=== PATIENT | female | born 1980 | race Caucasian/White ===

== ENCOUNTER 2016-09-25 08:48 | Day surgery (SDC) | payer OTHER ==
[~2016-09-25] VITALS: Ht 163.8 cm; Wt 108.4 kg
[~2016-09-25 08:48] MED LIST: FLEXERIL10 MG PO; TRINESSA1 EACH PO
[2016-09-25 09:16] VITALS: BP 125/68
[2016-09-25] MEDS ORDERED: PERCOCET 5/31 TABLET PO (11:32)
[2016-09-25 12:08] VITALS: BP 133/87
[2016-09-25 13:08] VITALS: BP 121/71
== END 2016-09-25 13:35 | disposition home or self-care (01) ==
LOC: SDC
PROC: 0U574ZZ Destruction of Bilateral Fallopian Tubes, Percutaneous Endoscopic Approach (ICD-10-PCS; principal; 2016-09-25)
DX: Z30.2 Encounter for sterilization (principal); N83.202 Unspecified ovarian cyst, left side; N80.3 Endometriosis of pelvic peritoneum; Z87.891 Personal history of nicotine dependence
CPT/HCPCS: J0131; J1100; J1170; J1885; J2250; J2405; J2710; J2765; J3010; S0020